=== PATIENT | female | born 1995 | race Caucasian/White ===

== ENCOUNTER 2016-10-29 16:42 | Emergency (ER) | payer MEDICAID ==
[~2016-10-29 16:42] MED LIST: CALCIUM 500 MG1 EACH PO; MACROBID 100 M100 M1 PO; MECLIZINE HCL25 M3 PO; NO HOME MEDICATION XX; PERCOCET 5-3251 EACH PO; PRENATAL CAPLE1 EACH PO; ZOFRAN ODT4 MG PO; ZOFRAN4 M2 PO
[2016-10-29 20:11] LABS: URINE BILIRUBIN NEGATIVE (NEG); URINE BLOOD SMALL (NEG); URINE GLUCOSE (UA) NEGATIVE (NEG); URINE KETONE MODERATE (NEG); URINE LEUKOCYTE ESTERASE POSITIVE (NEG); URINE NITRITE NEGATIVE (NEG); URINE PH 6.5 (5.0-8.0); URINE PROTEIN SMALL (NEG)
[2016-10-29 20:13] LABS: URINE APPEARANCE CLOUDY; URINE COLOR YELLOW
[2016-10-29 20:19] LABS: URINE AMORPHOUS 3+; URINE WBC 15-20 /[HPF] (0-5)
[2016-10-29 20:20] LABS: URINE BACTERIA 1+
[2016-10-29] MEDS ORDERED: MACROBID 100 M100 M1 PO (20:41)
[2016-11-27] MEDS ORDERED: NORCO 5-325 TA1 EACH PO ×2 (15:20→20:09)
[2016-11-27] MEDS ORDERED: IBUPROFEN800 M1 PO (15:21)
== END 2016-10-29 21:55 ==
LOC: EDMED 16:42
PROVIDERS: Emergency Medicine
DX: O03.9 Complete or unspecified spontaneous abortion without complication (principal); O23.41 Unspecified infection of urinary tract in pregnancy, first trimester; O99.331 Smoking (tobacco) complicating pregnancy, first trimester; F17.200 Nicotine dependence, unspecified, uncomplicated; Z3A.13 13 weeks gestation of pregnancy

== ENCOUNTER 2016-10-30 13:07 | Day surgery (SDC) | payer MEDICAID ==
[2016-10-30 14:18] LABS: BASO % 0.1 % (0-2); EOS % 1.1 % (0-7); EOSINOPHIL ABSOLUTE COUNT 0.1 tho/cmm (0.0-0.7); HCT-HEMATOCRIT 34.1 % (34.0-49.0); HGB-HEMOGLOBIN 11.8 gm/dl (12.0-15.5); IMMATURE GRANULOCYTES ABSOLUTE 0.02 tho/cmm (0-0.03); IMMATURE GRANULOCYTES PERCENT 0.3 % (0-0.3); LYMPH % 26.8 % (20-45); LYMPH ABSOLUTE COUNT 2.1 tho/cmm (0.8-4.5); MCH (MEAN CORPUSCULAR HGB) 29.2 pg (28.0-32.0); MCHC MEAN CORPUSCULAR HGB CONC 34.6 % (32.0-36.0); MCV (MEAN CELL VOLUME) 84.4 fl (82.0-96.0); MEAN PLATELET VOLUME 9.1 cmc (9.4-12.4); MONO % 7.6 % (0-12); MONOCYTE ABSOLUTE COUNT 0.6 tho/cmm (0.0-1.2); NEUTROPHILS % 64.1 % (40-80); PLATELET COUNT 249 tho/cmm (150-450); RED BLOOD COUNT 4.04 mil/cmm (4.00-5.20); WHITE BLOOD COUNT 7.9 tho/cmm (4.0-10.0)
[2016-11-27] MEDS ORDERED: NORCO 5-325 TA1 EACH PO ×2 (15:20→20:09)
[2016-11-27] MEDS ORDERED: IBUPROFEN800 M1 PO (15:21)
== END 2016-10-30 18:37 ==
LOC: WSU 13:07 → SHSA 13:08 → PACU 16:00 → SHSA 16:55
PROVIDERS: Obstetrics & Gynecology
PROC: 10D17ZZ Extraction of Products of Conception, Retained, Via Natural or Artificial Opening (ICD-10-PCS; principal; 2016-10-30)
DX: O03.9 Complete or unspecified spontaneous abortion without complication (principal); F17.200 Nicotine dependence, unspecified, uncomplicated; Z67.10 Type A blood, Rh positive; Z79.899 Other long term (current) drug therapy; Z91.018 Allergy to other foods; Z98.890 Other specified postprocedural states
CPT/HCPCS: J0690; J2210; J3010